=== PATIENT | female | born 1950 | race African-American/Black ===

== ENCOUNTER 2021-04-22 13:50 | Outpatient (CLI) | payer MEDICARE | END 2021-04-22 13:51 | disposition home or self-care (01) | LOC: CSHMAMMO 13:50 | PROVIDERS: ATTEND Family Medicine | DX: Z12.31 Encounter for screening mammogram for malignant neoplasm of breast (principal); Z80.3 Family history of malignant neoplasm of breast | CPT/HCPCS: 77063; 77067 ==

== ENCOUNTER 2023-11-02 12:19 | Outpatient (CLI) | payer MEDICARE | END 2023-11-02 12:20 | disposition home or self-care (01) | LOC: CSHRAD 12:19 | PROVIDERS: ATTEND Student in an Organized Health Care Education/Training Program | DX: R05.3 Chronic cough (principal) | CPT/HCPCS: 71046 ==